=== PATIENT | female | born 1970 | race African-American/Black ===

== ENCOUNTER 2025-05-28 09:35 | Outpatient (CLI) | payer OTHER, SELFPAY ==
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
--- OUTSIDE RECORDS SUMMARY | 2025-05-28 09:46 | XMS_ITS | Clinical Summary ---
Author Organization [place] Address [facility] [place] [address] Care Team Providers Care Electrical And Instrument Engineer Name Role Phone None, Provider MD Primary Care Provider Unavaila ble Allergies No known active allergies Medications meloxicam (MOBIC) 15 MG tablet Take 1 tablet (15 mg total) by mouth daily. 30 tablet 05/21/2024 Active Social History Tobacco Use Types Packs/Day Years Used Date Smoking Tobacco: Never Assessed Comments No Sex and Gender Information Value Date Recorded Sex Assigned at Not on file Legal Sex Female 8:01 PM CDT Gender Identity Not on file Sexual Orientation Not on file Last Filed Vital Signs Vital Sign Reading Time Taken Comments Blood Pressure 152/97 05/21/2024 12:24 PM DOG BREEDER Pulse 96 05/21/2024 12:24 PM DOG BREEDER Temperature 36.8 C (98.3 F) 05/21/2024 12:27 PM DOG BREEDER Respiratory Rate 18 05/21/2024 12:24 PM DOG BREEDER Oxygen Saturation 99% 05/21/2024 12:24 PM DOG BREEDER Inhaled Oxygen Concentration - - Weight 123.8 kg (273 lb) 05/21/2024 12:27 PM DOG BREEDER Height 160 cm (5' 3) 05/21/2024 12:27 PM DOG BREEDER Body Mass Index 48.36 05/21/2024 12:27 PM DOG BREEDER Plan of Treatment Health Maintenance Due Date Last Done Comments Cervical Cancer Screening Pap Smear (Age 30 to 64) Every 3 Years 1970 Colorectal Cancer Screening Colonoscopy (10 Years) 1970 Annual Physical 09/03/1974 Hepatitis C 09/03/1989 Hepatitis B Vaccines (1 of 3 - 19+ 3-dose series) 09/03/1990 Cervical Cancer Screening Pap with HPV Testing (Age 30 to 64) Every 5 Years 09/03/2001 Cervical Cancer Screening with HPV 09/03/2001 Pneumococcal Vaccine: 50+ Years (1 of 1 - PCV) 09/03/2021 Zoster Vaccines (1 of 2) 09/03/2021 DTaP, Tdap and Td Vaccines (7 - Td or Tdap) 03/16/2024 03/16/2014, 01/26/1987, 02/06/1977, Additional history exists COVID-19 Vaccine ( - 2024- season) 2025 03/07/2023, 10/14/2020 Influenza Adult (#1) 2025 03/12/2024, 03/03/2024, 03/07/2023, Additional history exists Mammogram Screening 01/13/2026 01/14/2024, 03/09/2019, 03/04/2018, Additional history exists Hepatitis A Vaccines Aged Out No long er eligible based on patient's age to complete this topic Meningococcal B Vaccine Aged Out No l onger eligible based on patient's age to complete this topic Meningococcal Vaccine Aged Out No yulia lorenzo eligible based on patient's age to complete this topic RSV Immunizations Under 20 Months Aged Out No longer eligible based on patient's age to complete this topic Insurance [facility] MEDICAL REIMBURSEMENTS OF ABIGAIL Care Teams Electrical And Instrument Engineer Relationship Specialty Start Date End Date None, Provider, MD PCP - General UNKNOWN PHYSICIAN SPECIALTY 05/21/24
--- OUTSIDE RECORDS SUMMARY | 2025-05-28 09:46 | XMS_ITS | Clinical Summary ---
Author Organization [facility] Address [address] [place] [address] Care Team Providers Care Real Estate Administrative Assistant Name Role Phone Unavailable Primary Care Provider Unavailabl e Source Comments [facility],non-owned Affiliates and Associated Physician Practices is amultiple site organization consisting of ambulatory clinics and hospital sitesin [place], [place], [place] and [place]. This disclosure is being madepursuant to the Care Everywhere program and may not contain all information available regarding this patient. Last updated 18.[facility] Allergies Active Allergy Reactions Criticality Noted Date Comments Penicillins Urticaria,Nausea and/or Vomiting Medium Medications * Be aware that medications may not be up to date on this document. Alwaysverify current medications with the patient. sodium chloride 0.9 % nebulizer solution 3 mL 5 04/15/20 17 Active Additional Information Patient not taking.Reported on 01/06/2021 potassium chloride (KLOR-CON M) 20 MEQ tablet Take 20 mEq by mouth DAILY. 60 tablet 5 04/06/20 16 Active Additional Information Patient not taking.Reported on 01/11/2021 ferrous sulfate 325 (65 FE) MG tabletIndications: Iron deficiency anemia, unspecified iron deficiency anemia type Take 1 tablet by mouth 2 times daily with morning and evening meal 180 tablet 09/22/19 20 Active Additional Information Patient not taking.Reported on 01/06/2021 propranolol CR 24hr (INDERAL LA) 80 MG capsuleIndications :Chronic nonintractable headache, unspecified headache type Take 1 (one) capsule by mouth once daily 30 capsule 5 10/20/19 21 Active Additional Information Patient not taking.Reported on 01/06/2021 HYDROcodone-acetam inophen (NORCO) 5-325 MG tablet Take 1 (one) tablet by mouth every 6 hours as needed for Pain 20 tablet 01/12/20 Active Active Problems Problem Noted Date Diagnosed Date 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 Carpal tunnel syndrome of left wrist 09/12/2020 Left wrist sprain 10/08/2019 Closed fracture of lower end of right radius with routine healing 01/29/2018 Iron deficiency anemia 06/24/2014 History of corneal transplant 06/23/2012 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 (AF LURIA, FLUZONE TRIVALENT; 6MO+) (IIV3) 02/17/2014 TDAP (7yrs+) 03/16/2014 Family History Medical History Relation Name Comments Glaucoma Maternal Grandmother Additional onset of Breast Cancer Mother x2 Cancer - Breast Mother Cancer - Colon Mother Glaucoma Mother Relation Name Status Comments Maternal Grandmother Mother Alive Social History Tobacco Use Types Packs/Day Years Used Date Smoking Tobacco: Never Smokeless Tobacco: Never Alcohol Use Standard Drinks/Week Comments No 0 (1 standard drink = 0.6 oz pur e alcohol) PHQ-2 Answer Date Recorded PHQ2 TOTAL SCORE 0 10/19/2020 Comments No Sex and Gender Information Value Date Recorded Sex Assigned at Not on file 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 Gender Identity Not on file Sexual Orientation Not on file Last Filed Vital Signs Vital Sign Reading Time Taken Comments Blood Pressure 131/80 01/11/2021 2:35 PM CDT Pulse 86 01/11/2021 2:35 PM CDT Temperature 36.6 C (97.9 F) 01/11/2021 2:01 PM CDT Respiratory Rate 16 01/11/2021 2:35 PM CDT Oxygen Saturation 97% 01/11/2021 2:35 PM CDT Inhaled Oxygen Concentration - - Weight 131.5 kg (290 lb) 01/14/2024 11:11 AM CDT Height 160 cm (5' 3) 01/11/2021 9:40 AM CDT Body Mass Index 51.37 01/11/2021 9:40 AM CDT Plan of Treatment Health Maintenance Due Date Last Done Comments COLOGUARD (AGES 45-75) - COLON CA SCREENING 1970 CT COLONOGRAPHY - COLON CA SCREENING 1970 FIT - COLON CA SCREENING 1970 FLEX SIG - COLON CA SCREENING 1970 HIV SCREENING 09/03/1986 HEPATITIS C SCREENING 08/30/1989 HEPATITIS B VACCINE (1 of 3 - 19+ 3-dose series) 09/03/1990 PAP SMEAR 09/03/1992 PNEUMOCOCCAL VACCINE 50+ (1 of 1 - PCV) 09/03/2021 ZOSTER VACCINE (1 of 2) 09/03/2021 SCREENING FOR DIABETES 10/20/2023 1, 10/19/2020, 09/19/2019, Additional history exists DTAP/TDAP/TD VACCINES (2 - Td or Tdap) 03/16/2024 03/16/2014 DEPRESSION SCREENING 06/03/2024 COVID-19 VACCINE (3 - season) 2025 03/07/2023, 10/14/2020 INFLUENZA VACCINE (#1) 2025 3, 03/03/2014, 02/17/2014 LIPID TESTING 10/19/2025 10/19/2020, 03/05, 04/09/2017, Additional history exists MAMMOGRAM 01/13/2026 01/14/2024, 12/2018, 03/04/2018, Additional history exists COLON MONITORING 03/11/2029 03/11/2019, 02/2019, 03/11/2019, Additional history exists COLONOSCOPY - COLON CA SCREENING 03/11/2029 03/11/2019, 03/11/2019, 03/11/2019, Additional history exists Colorectal Cancer Screening 03/11/2029 HIB VACCINE Aged Out No longer eligi ble based on patient's age to complete this topic HPV VACCINE Aged Out No longer eligi ble based on patient's age to complete this topic MENINGOCOCCAL (Group B) VACCINE SHARED DECISION-MAKING Aged Out No longer eligible based on patient's age to complete this topic MENINGOCOCCAL GROUPS A/C/Y/W VACCINE Aged Out No longer eligible based on patient's age to complete this topic Goals Goal Patient Goal Type Associated Problems Recent Progress Patient-Stated? Author Mobility General Worsening(12/02 11:34 AM CDT) No Larisa Betancourt, RN Note: Expected end date: 06/02/2021 The goal is to maintain or improve your mobility at the optimum level for you. Interventions: Procedures Procedure Name Priority Date/Time Associated Diagnosis Comments MAMMO BILAT SCREENING W RADHA Routine 01/14/2024 11:11 AM CDT Encounter for screening mammogram for malignant neoplasm of breast COMPREHENSIVE METABOLIC PANEL Routine 10/19/2020 3:22 PM CDT Hypokalemia LIPID PROFILE Routine 10/19/2020 3:22 PM CDT Lipid screening ENDOSCOPY, COLON, SCREENING Routine 03/11/2019 12:35 PM CDT from Last 3 Months or Most Recently Relevant to Health Maintenance Results * Mammo Bilat Screening W Radha (01/14/2024 11:11 AM CDT) Anatomical Region Laterality Modality Breast Bilateral Mammography 01/14/2024 11:1 7 AM CDT Impressions 01/14/2024 11:39 AM CDT : Benign mammogram, without evidence of malignancy. RECOMMENDATION: Screening mammography in one year, pending no interval breast concerns. Patient will receive the examination results by lay letter. OVERALL ASSESSMENT: BI-RADS CATEGORY 2: BENIGN. Report dictated by Umer Alberto M.D. (chief radiology) 01/14/2024 11:26 AM Rodney Bond M.D. and Ame Daniels M.D. also participated in the interpretation of this study. I, Marleni Johnson MD have personally reviewed and interpreted this examination/study. > Interpreting Provider: Marleni Johnson MD on 01/14/2024 11:39 AM Narrative 01/14/2024 11:39 AM CDT EXAMINATIONS: BILATERAL DIGITAL SCREENING MAMMOGRAM AND BILATERAL BREAST TOMOSYNTHESIS WITH CAD LOCATION: [facility] EXAM DATE: 01/14/2024 HISTORY: Screening. Patient with family history of breast cancer in her mother at age 45. RISK ASSESSMENT CALCULATION: Patient completed a breast cancer risk assessment during her appointment 01/14/2024. Based upon the information she provided and her mammographic breast density, her lifetime risk of developing breast cancer is 19.6 % (Average Risk <15%; Intermediate / Moderate Risk 15-19%; High Risk > 20%). COMPARISON: Compare with prior breast imaging studies back to 11/17/2012, with the most recent dated 03/09/2019. TECHNIQUE: Tomosynthesis (3D) and reconstructed synthetic 2-D images acquired and reviewed in the bilateral craniocaudal and mediolateral oblique projections. Additional bilateral craniocaudal nipple profile projections were obtained. A total of 10 images obtained. Transpara AI was utilized in the interpretation. BREAST PARENCHYMAL COMPOSITION: Category B: There are scattered areas of fibroglandular density. FINDINGS: There are no suspicious findings or evidence of malignancy on mammography. Benign oil cysts and skin calcifications in the right breast. There is no significant change from the prior. us Eda Degroot DO MAMMO ORDERABLES Final Resul t * (ABNORMAL) COMPREHENSIVE METABOLIC PANEL (10/19/2020 3:22 PM CDT) BUN 6(L) 7 - 26 mg/dL 10/19/2020 4:11 PM CDT [facility] Creatinine 0.67 0.56 - 0.96 mg/dL 10/19/2020 4:11 PM CDT [facility] Sodium 139 136 - 145 mmol/L 10/19/2020 4:11 PM CDT [facility] Potassium 3.7 3.5 - 4.5 mmol/L 10/19/2020 4:11 PM CDT [facility] Chloride 105 98 - 107 mmol/L 10/19/2020 4:11 PM [facility] CO2 28 22 - 29 mmol/L 10/19/2020 4:11 PM [facility] Glucose 84 70 - 115 mg/dL 10/19/2020 4:11 PM [facility] Calcium 8.9 8.4 - 10.2 mg/dL 10/19/2020 4:11 PM [facility] Protein Total 7.9 6.0 - 8.3 g/dL 10/19/2020 4:11 PM [facility] Albumin 3.8 3.4 - 5.0 g/dL 10/19/2020 4:11 PM [facility] Bilirubin Total 0.4 0.2 - 1.2 mg/dL 10/19/2020 4:11 PM [facility] Alkaline Phosphatase 72 40 - 150 U/L 10/19/2020 4:11 PM [facility] ALT 12 5 - 55 U/L 10/19/2020 4:11 PM [facility] AST 15 5 - 34 U/L 10/19/2020 4:11 PM [facility] Anion Gap 10 8 - 18 10/19/2020 4:11 PM [facility] BUN/Creatinine Ratio 9 7 - 23 10/19/2020 4:11 PM [facility] Osmolality Calculated 285 270 - 300 mOsm/kg 10/19/2020 4:11 PM [facility] Albumin/Globulin Ratio 0.9(L) 1.1 - 2.3 10/19/2020 4:11 PM [facility] eGFR by CKD-EPI >90 >=90 mL/min/1.7 3 m2 10/19/2020 4:11 PM [facility] Blood BLOOD SPECIMEN / Unknown Lab Venipuncture / Unknown 10/19/2020 3:22 PM CDT 10/19/2020 3:48 PM [facility] us Eda Degroot DO LAB - CHEMISTRY ORDERABLES F inal Result [facility] [address] [place] [id number], [facility] [phone] * (ABNORMAL) LIPID PROFILE (10/19/2020 3:22 PM CDT) Cholesterol Total 155 <200 mg/dL 10/19/2020 4:11 PM CDT [facility] HDL 39(L) >40 mg/dL 10/19/2020 4:11 PM CDT [facility] Comment: ATP III Classification of HDL Cholesterol: <40 mg/dL: Considered a major risk factor. >60 mg/dL: Considered a negative risk factor. LDL Calculated 98 <100 mg/dL 10/19/2020 4:11 PM CDT [facility] Comment: ATP III Classification of LDL Cholesterol: <100 mg/dL: Optimal 100 - 129 mg/dL: Near Optimal/Above Optimal 130 - 159 mg/dL: Borderline High 160 - 189 mg/dL: High >190 mg/dL: Very High Triglycerides 92 <150 mg/dL 10/19/2020 4:11 PM CDT [facility] Comment: ATP III Classification of Triglycerides: <150 mg/dL: Normal 150 - 199 mg/dL: Borderline High 200 - 400 mg/dL: High >500 mg/dL: Very High Blood BLOOD SPECIMEN / Unknown Lab Venipuncture / Unknown 10/19/2020 3:22 PM CDT 10/19/2020 3:48 PM CDT Eda Degroot DO LAB - CHEMISTRY ORDERABLES F inal Result Performing Organization Address City/State/[facility] Co de Phone Number [facility] [address] [place] [phone], [facility] [phone] * ENDOSCOPY, COLON, SCREENING (03/11/2019 12:35 PM CDT) Report Endoscopy POC _ Patient Name: Katerine Patricia Procedure Date: 03/11/2019 12:35 PM Date of : 1970 Admit Type: Outpatient Age: 48 Gender: Female Ethnicity: Not or Race: Black or Attending MD: Joselyn Ludwig MD _ Procedure: Colonoscopy Indications: Screening in patient at increased risk: Family history of 1st-degree relative with colorectal cancer before age 60 years. This is the patient's first colonoscopy. Providers: Joselyn Ludwig MD (Doctor), Dina Mccormick, Pouncer Referring MD: RYAN Main (Referring MD) Medicines: Monitored Anesthesia Care Complications: No immediate complications. _ Procedure: Pre-Anesthesia Assessment: - Prior to the procedure, a History and Physical was performed, and patient medications and allergies were reviewed. The patient's tolerance of previous anesthesia was also reviewed. The risks and benefits of the procedure and the sedation options and risks were discussed with the patient. All questions were answered, and informed consent was obtained. Prior Anticoagulants: The patient has taken no previous anticoagulant or antiplatelet agents. ASA Grade Assessment: II - A patient with mild systemic disease. After reviewing the risks and benefits, the patient was deemed in satisfactory condition to undergo the procedure. After I obtained informed consent, the scope was passed under direct vision. Throughout the procedure, the patient's blood pressure, pulse, and oxygen saturations were monitored continuously. The Colonoscope was introduced through the anus and advanced to the cecum, identified by appendiceal orifice and ileocecal valve. The ileocecal valve, appendiceal orifice, and rectum were photographed. The colonoscopy was performed without difficulty. The patient tolerated the procedure well. The quality of the bowel preparation was fair. Impression: - Preparation of the colon was fair. - Hemorrhoids found on perianal exam. - One 10 mm polyp in the transverse colon, removed with a hot snare. Complete resection. Partial retrieval. - Two 2 to 4 mm polyps in the transverse colon, removed with a jumbo cold forceps. Resected and retrieved. - One 10 mm polyp in the descending colon, removed with a hot snare. Resected and retrieved. - One 5 mm polyp in the descending colon, removed with a jumbo cold forceps. Resected and retrieved. - Four diminutive polyps in the rectum, removed with a jumbo cold forceps. Resected and retrieved. - Non-bleeding external hemorrhoids. Findings: Hemorrhoids were found on perianal exam. A 10 mm polyp was found in the transverse colon. The polyp was sessile. The polyp was removed with a hot snare. Resection was complete, but the polyp tissue was only partially retrieved. Two sessile polyps were found in the transverse colon. The polyps were 2 to 4 mm in size. These polyps were removed with a jumbo cold forceps. Resection and retrieval were complete. A 10 mm polyp was found in the descending colon. The polyp was sessile. The polyp was removed with a hot snare. Resection and retrieval were complete. A 5 mm polyp was found in the descending colon. The polyp was sessile. The polyp was removed with a jumbo cold forceps. Resection and retrieval were complete. Four hyperplastic-appe aring polyps were found in the rectum. The polyps were diminutive in size. These polyps were removed with a jumbo cold forceps. Resection and retrieval were complete. Non-bleeding external hemorrhoids were found during retroflexion. The hemorrhoids were mild. _ Recommendation: - Resume previous diet. - Continue present medications. - Await pathology results. - Repeat colonoscopy in 3 - 5 years for surveillance based on pathology results. - Return to primary care physician as previously scheduled. Procedure Code(s): --- Professional --- 91911, Colonoscopy, flexible; with removal of tumor(s), polyp(s), or other lesion(s) by snare technique 09687, 59, Colonoscopy, flexible; with biopsy, single or multiple --- Technical --- 21689, Colonoscopy, flexible; with removal of tumor(s), polyp(s), or other lesion(s) by snare technique [id number], 59, Colonoscopy, flexible; with biopsy, single or multiple Diagnosis Code(s): --- Professional --- Z80.0, Family history of malignant neoplasm of digestive organs K64.4, Residual hemorrhoidal skin tags D12.3, Benign neoplasm of transverse colon (hepatic flexure or splenic flexure) D12.4, Benign neoplasm of descending colon K62.1, Rectal polyp --- Technical --- Z80.0, Family history of malignant neoplasm of digestive organs K64.4, Residual hemorrhoidal skin tags D12.3, Benign neoplasm of transverse colon (hepatic flexure or splenic flexure) D12.4, Benign neoplasm of descending colon K62.1, Rectal polyp CPT copyright 2017 [employer]. All rights reserved. The codes documented in this report are preliminary and upon driver service technician review may be revised to meet current compliance requirements. ___ Joselyn Ludwig MD 03/11/2019 1:39:49 PM This report has been signed electronically. Number of Addenda: 0 Note Initiated On: 03/11/2019 12:35 PM [facility] 03/11/2019 12:3 5 PM CDT us Joselyn Hayes MD GI PROCEDURE ORDERABLES E dited Result - Final [facility] from Last 3 Months or Most Recently Relevant to Health Maintenance Insurance [employer]
--- OUTSIDE RECORDS SUMMARY | 2025-05-28 09:46 | XMS_ITS | Encounter Summary ---
Author Organization [facility] Address [address] [place] [address] Care Team Providers Care Antiquer Name Role Phone Irwin Marte MD Primary Care Provider [phone] Eda Degroot DO Primary Care Provider [phone] Encounter Details Date Type Department Care Team (Late st Contact Info) Description 03/31/2018 Lab Requisition [facility] [address] [place] [id number] Unlisted, Ordering Provider, Social History Tobacco Use Types Packs/Day Years Used Date Smoking Tobacco: Never Smokeless Tobacco: Never Alcohol Use Standard Drinks/Week Comments No 0 (1 standard drink = 0.6 oz pur e alcohol) Comments No Sex and Gender Information Value Date Recorded Sex Assigned at Not on file 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 Gender Identity Not on file Sexual Orientation Not on file documented as of this encounter Plan of Treatment Not on file documented as of this encounter Procedures Procedure Name Priority Date/Time Associated Diagnosis Comments GLUCOSE VITALITY Routine 04/01/2018 6:00 AM CDT HEMOGLOBIN A1C Routine 04/01/2018 6:00 AM CDT LIPID PROFILE Routine 04/01/2018 6:00 AM CDT documented in this encounter Results * HEMOGLOBIN A1C (04/01/2018 6:00 AM CDT) [facility] [address] Hemoglobin A1c 5.0 4.4 - 6.3 % 04/01/2018 12:02 PM [facility] Estimated Average Glucose 97 mg/dL 04/01/2018 12:02 PM [facility] Comment: HbA1c Interpretation: Treatment target values recommended by ADA and other clinical organizations should be used to evaluate metabolic control in patients. Treatment Target Values: Normal : < 5.7% Pre-diabetes: 5.7-6.4% Diabetes: Equal to or greater than 6.5% Reference: [place] [employer] Standards of Care in Diabetes -2014 In patients 70 years and older consider HbA1c target range of 7.0-7.5% Reference: Diabetes Mellitus in Older People: Position Statement on behalf of the International Association of Gerontology and Geriatrics (IAGG), the Diabetes Working Democrat for Older People (EDWPOP), and the International Task Force of Experts in Diabetes. Steven Davies et al. J [place] [employer]. 2012 Test results diagnostic of diabetes should be repeated for confirmation. The Tosoh G8 assay for the measurement of HbA1c is a National Glycohemoglobin Standardization Program (NGSP)certified method. Results for patients with HbE disease should be interpreted with caution as this hemoglobinopathy has been shown to interfere with the Tosoh G8 assay. Blood BLOOD SPECIMEN / Unknown 04/01/2018 6:00 AM CDT 04/01/2018 10:22 AM CDT us Ordering Provider Unlisted MD LAB - CHEMISTRY OR DERABLES Final Result Performing Organization Address City/State/[facility] Co de Phone Number [address] [phone] * (ABNORMAL) LIPID PROFILE (04/01/2018 6:00 AM CDT) [facility] [address] Cholesterol Total 173 <200 mg/dL 04/01/2018 10:57 AM [facility] HDL 48 >40 mg/dL 04/01/2018 10:57 AM [facility] Comment: ATP III Classification of HDL Cholesterol: <40 mg/dL: Considered a major risk factor. >60 mg/dL: Considered a negative risk factor. LDL Calculated 107(H) <100 mg/dL 04/01/2018 10:57 AM CDT [facility] Comment: ATP III Classification of LDL Cholesterol: <100 mg/dL: Optimal 100 - 129 mg/dL: Near Optimal/Above Optimal 130 - 159 mg/dL: Borderline High 160 - 189 mg/dL: High >190 mg/dL: Very High Triglycerides 92 <150 mg/dL 04/01/2018 10:57 AM CDT [facility] Comment: ATP III Classification of Triglycerides: <150 mg/dL: Normal 150 - 199 mg/dL: Borderline High 200 - 400 mg/dL: High >500 mg/dL: Very High Blood BLOOD SPECIMEN / Unknown 04/01/2018 6:00 AM CDT 04/01/2018 10:22 AM CDT us Ordering Provider Unlisted MD LAB - CHEMISTRY OR DERABLES Final Result Performing Organization Address [facility]/ZIP Co de Phone Number [address] [phone] * GLUCOSE VITALITY (04/01/2018 6:00 AM CDT) Glucose 76 70 - 115 mg/dL 04/01/2018 10:50 AM CDT [facility] Blood BLOOD SPECIMEN / Unknown 04/01/2018 6:00 AM CDT 04/01/2018 10:22 AM CDT us Ordering Provider Unlisted MD LAB - CHEMISTRY OR DERABLES Final Result Performing Organization Address City/[facility]/ZIP Co de Phone Number [address] [phone] documented in this encounter Visit Diagnoses Not on filedocumented in this encounter Care Teams Antiquer Relationship Specialty Start Date End Date Irwin Marte MD PCP - General 04/03/16 11/09/18 Eda Degroot DO [address] [place] [address] PCP - General Family Medicine 01/11/21 05/03/24 documented as of this encounter
[2025-05-28 10:14] LABS: Hematocrit 34.4 % (37.0-47.0); Hemoglobin 10.9 g/dL (12.0-15.0); Immature Granulocyte Percent A 0.3 % (0-0.5); Lymphocytes Absolute Auto 2.95 K/mm3 (0.9-3.2); Mean Corpuscular HGB Conc 31.7 g/dl (32-36); Mean Corpuscular Hemoglobin 27.4 pg (26-34); Mean Corpuscular Volume 86.4 fl (80-100); Nucleated Red Blood Cells Absolute Auto 0.000 K/mm3 (0.0-0.012); Nucleated Red Blood Cells Perc 0.0 % (0.0-0.2); Platelet Count Result 334 k/mm3 (150-375); Red Blood Count 3.98 M/mm3 (4.2-5.4); White Blood Count 7.8 K/mm3 (4.5-10.0)
[2025-05-28 10:31] LABS: Iron 38 ug/dL (37-170)
[2025-05-28 10:32] LABS: Anion Gap 6 mmol/L (4-12); Blood Urea Nitrogen 8 mg/dL (7-17); Calcium 9.2 mg/dL (8.4-10.2); Carbon Dioxide 25 mmol/L (22-30); Chloride 107 mmol/L (98-107); Estimated Glomerular Filt Rate > 60; Glucose 92 mg/dL (65-110); Potassium 3.8 mmol/L (3.4-5.0); Sodium 138 mmol/L (137-145)
[2025-05-28 10:40] LABS: Percent Iron Saturation 11 % (20-50)
[2025-05-28 11:12] LABS: Ferritin 14.50 ng/mL (11.1-264)
[2025-05-29 07:08] LABS: TSH 1.310 uIU/mL (0.450-4.500)
== END 2025-05-28 09:36 | disposition home or self-care (01) ==
PROVIDERS: Visit Provider Physician Assistant
DX: R00.2 Palpitations (principal)
CPT/HCPCS: 36415; 80048; 82728; 83540; 83550; 84439; 84443; 84481; 85025; 86376